=== PATIENT | male | born 1975 | race Caucasian/White ===

== ENCOUNTER 2022-03-31 18:25 | Emergency (ER) | payer OTHER ==
[2022-03-31 19:27] LABS: BASOPHIL 0.5 % (0-2); EOSINOPHIL 1.9 % (0-5); HCT 39.1 % (42.0-52.0); HGB 13.4 g/dl (13.2-18.0); LYMPHOCYTE 18.3 % (15-48); MCHC 34.3 g/dL (32.0-36.0); MCV 96.3 fL (78.0-100.0); MONOCYTE 7.7 % (0-12); NRBC 0; PLT 271 K/uL (150-400); RBC 4.06 M/uL (4.70-6.00); RDW 11.8 % (11.5-14.0); WBC 12.7 K/uL (4.0-10.5)
[2022-03-31 19:53] LABS: ALBUMIN 3.4 g/dL (3.4-5.0); BILIRUBIN - TOTAL 0.2 mg/dL (0.2-1.0); BUN/CREAT RATIO (CALC) 22.9 RATIO; CREATININE 1.09 mg/dL (0.67-1.17); GLOBULIN (CALCULATION) 3.9 g/dL; POTASSIUM 3.7 mmol/L (3.5-5.1); TOTAL PROTEIN 7.3 g/dL (6.4-8.2)
[2022-03-31 20:02] LABS: CORONAVIRUS 2019 SARS-COV-2 NEGATIVE (NEGATIVE); INFLUENZA A NAA NEGATIVE (NEGATIVE)
[2022-03-31] MEDS ORDERED: AMOXICILLIN500 MG PO (21:27)
[2022-03-31] MEDS ORDERED: MEDROL 4MG DOSEP4 MG PO (21:27)
== END 2022-03-31 22:00 | disposition home or self-care (01) ==
LOC: FER 18:25
PROVIDERS: Emergency Medicine
DX: J18.9 Pneumonia, unspecified organism (principal); Z20.822 Contact with and (suspected) exposure to COVID-19; Z88.8 Allergy status to other drugs, medicaments and biological substances
CPT/HCPCS: 36415; 71045; 71275; 80053; 84484; 85025; 85379; 93005; 94640; 94664; J0696; J1885; J2405; J2930; Q9967; U0002